=== PATIENT | male | born 2005 | race Hispanic/Latino ===

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

== ENCOUNTER 2024-06-20 15:35 | Emergency (ER) | payer OTHER, SELFPAY ==
[2024-06-20 15:46] VITALS: BP 125/77
[2024-06-20 15:51] VITALS: BP 125/77
--- NOTE | 2024-06-20 16:50 | ED.GENMED ---
History of Present Illness
<Denise Cooley PA-C - Last Filed: 06/20/24 20:26>
General
Chief Complaint: Throat Problem
Source: patient
Exam Limitations: none
Time Seen by Provider: 06/20/24 16:34
History of Present Illness
History of Present Illness:
18yoM with no significant past medical history presenting for evaluation of a sore throat. Patient has been sick for the past few days with a sore throat, body aches, chills, and fever. He initially had a cough but this has since resolved. He
reports a 'pinching pain' in his vocal cords/throat region that is mainly present after belching. He denies any dysphagia or foreign body sensation of his throat. No fevers, ear pain, vomiting.
Past History
<Denise Cooley PA-C - Last Filed: 06/20/24 20:26>
Past History
ED Past Medical History: None
ED Past Surgical History: None
Phy Exam
<Denise Cooley PA-C - Last Filed: 06/20/24 20:26>
General Physical Exam
General Presentation: well appearing and no apparent distress
General age: appears stated age
General Skin: warm and dry
General Habitus: normal
General Mental: alert
ENT Exam
ENT Exam: TM's normal, neck supple, normocephalic and other (Mild erythema to posterior oropharynx. No tonsillar hypertrophy or exudates. Uvula midline. Normal phonation. No trismus. Tolerating oral secretions without difficulty. )
Cardiovascular Exam
Cardiovascular Exam: regular rate/rhythm
Pulmonary Exam
Pulmonary Exam: lungs clear, no respiratory distress, no rales, no crackles and no rhonchi
Neurological Exam
Neurological Exam: alert
Skin Exam
Skin Exam: normal color and warm/dry
Psychiatric Exam
Psychiatric Exam: normal mood/affect
Course
<Denise Cooley PA-C - Last Filed: 06/20/24 20:26>
Orders/Labs/Results
Orders:
Orders
06/20/24 16:44
COVID-19 Antigen Urgent
Source: Nasal Swab
Influenza A+B Rapid Molecular Urgent
LUZ Source: Nasal Swab
Specimen Description:
06/20/24 16:49
CR Soft Tissue Neck Urgent
Comment:
Reason For Exam: pinching pain in throat
06/20/24 16:59
Rapid Strep Group A Urgent
LUZ Source: Throat/Pharynx
Specimen Description:
Date Specimen was Collected: 06/20/24
Time Specimen was Collected: 16:58
Vital Signs
Initial and Last Documented VS:
Initial Vital Signs
Temp Pulse Resp BP Pulse Ox
36.6 C 97 16 125/77 98
06/20/24 15:46 06/20/24 15:46 06/20/24 15:46 06/20/24 15:46 06/20/24 15:46
Last Documented Vital Signs
Temp Pulse Resp BP Pulse Ox
36.6 C 97 18 126/80 88
06/20/24 15:51 06/20/24 18:20 06/20/24 18:20 06/20/24 18:20 06/20/24 18:20
<Evaristo Pollard MD - Last Filed: 06/20/24 23:06>
Orders/Labs/Results
Orders:
Orders
06/20/24 16:44
COVID-19 Antigen Urgent
Source: Nasal Swab
Influenza A+B Rapid Molecular Urgent
LUZ Source: Nasal Swab
Specimen Description:
06/20/24 16:49
CR Soft Tissue Neck Urgent
Comment:
Reason For Exam: pinching pain in throat
06/20/24 16:59
Rapid Strep Group A Urgent
LUZ Source: Throat/Pharynx
Specimen Description:
Date Specimen was Collected: 06/20/24
Time Specimen was Collected: 16:58
Vital Signs
Initial and Last Documented VS:
Initial Vital Signs
Temp Pulse Resp BP Pulse Ox
36.6 C 97 16 125/77 98
06/20/24 15:46 06/20/24 15:46 06/20/24 15:46 06/20/24 15:46 06/20/24 15:46
Last Documented Vital Signs
Temp Pulse Resp BP Pulse Ox
36.6 C 97 18 126/80 88
06/20/24 15:51 06/20/24 18:20 06/20/24 18:20 06/20/24 18:20 06/20/24 18:20
<Denise Cooley PA-C - Last Filed: 06/20/24 20:26>
MDM/Problems Addressed
Differential Diagnosis Includes:
18yoM here with flu-like symptoms x a few days as well as a 'pinching pain' in his vocal cords with belching. VSS. He is well appearing in no distress. Mild erythema in posterior oropharynx. Exam otherwise reassuring. Differential diagnosis includes
but is not limited to: viral illness, strep pharyngitis, GERD
Initial ED plan: Check COVID/flu swabs, strep testing, and soft tissue neck x-rays.
<Denise Cooley PA-C - Last Filed: 06/20/24 20:26>
*Critical Care Note
Total Time (30-74mins, 75-104mins- exclusive of procedures): Not Applicable
<Denise Cooley PA-C - Last Filed: 06/20/24 20:26>
Update Note
Update Note:
Patient is positive for influenza A. COVID and strep testing negative. Neck x-rays appear normal per my interpretation, radiology report pending. Supportive care discussed. Advised f/u with PCP if throat symptoms persist. ED return precautions
discussed. Patient in agreement with plan and was discharged in stable condition.
<Evaristo Pollard MD - Last Filed: 06/20/24 23:06>
Update Note
Update Note:
Patient is positive for influenza A. COVID and strep testing negative. Neck x-rays appear normal per my interpretation, radiology report pending. Supportive care discussed. Advised f/u with PCP if throat symptoms persist. ED return precautions
discussed. Patient in agreement with plan and was discharged in stable condition.
UPDATE
I received a call from radiologist on an over read of the patient's neck x-ray. Concerned that there is retropharyngeal air on the x-ray. I called the patient to review this and advised him to come back to the emergency room immediately for
further assessment. He indicated that he would be returning.
ED Attending Note
<Denise Cooley PA-C - Last Filed: 06/20/24 20:26>
-
Portions of this chart may have been created with voice recognition software.� Occasional wrong word or��sound alike� substitutions may have occurred due to the inherent limitations of voice recognition software.
Discharge Plan
Departure
Patient Disposition: Home (Routine Discharge)
Date of Disposition: 06/20/24
Time of Disposition: 18:07
Patient with high blood pressure during this ER visit?: No
Discharge Problem:
Influenza A
Instructions: Flu in adults - ED discharge instructions
Prescriptions:
No Action
prednisone 20 MG tablet
40 mg PO DAILY Qty: 6 0RF
Referrals:
Laurence Mcclellan MD [Family Provider] -
Activity Restrictions/Additional Instructions:
Drink plenty of fluids and rest. Take Tylenol and ibuprofen as needed for fevers/body aches.
Please follow-up with your family doctor. Return to the ER with any worsening symptoms, trouble breathing, or inability to swallow.
Interventions
Interventions:
*Risk Screen - Suicide Last Done: 06/20/24 15:46
*General Assessment Last Done: 06/20/24 16:40
*Neglect/Abuse Screening Last Done: 06/20/24 15:51
*ED COVID-19 Vaccine History Last Done: 06/20/24 16:40
*Nursing Disposition Last Done: 06/20/24 18:20
ED-EENT Assessment Last Done: 06/20/24 16:40
ED- Pulmonary Assessment Last Done: 06/20/24 16:40
Discharge Date and Time
Discharge Date/Time: 06/20/24 18:21
Print Language: [place]
[2024-06-20 17:22] LABS: COVID-19 Antigen Negative (Negative)
[2024-06-20 18:20] VITALS: BP 126/80
== END 2024-06-20 18:21 | disposition home or self-care (01) ==
LOC: EMR 15:35
PROVIDERS: EMERGENCY PHYSICIAN Emergency Medicine; FAMILY PHYSICIAN Pediatrics
DX: J10.1 Influenza due to other identified influenza virus with other respiratory manifestations (principal); Z11.52 Encounter for screening for COVID-19
CPT/HCPCS: 99283; 70360; 87070; 87502; 87811; 87880

== ENCOUNTER 2024-06-21 14:15 | Emergency (ER) | payer OTHER, SELFPAY ==
[2024-06-21 14:31] VITALS: BP 125/73
[2024-06-21 15:12] LABS: % Basophils 0.5 % (0-2); % Eosinophils 3.2 % (0-6); % Immature Granulocytes 0.4 % (0-0.5); % Lymphocytes 30.9 % (20.5-51.1); % Monocytes 13.7 % (1.7-9.3); % Neutrophils 51.3 % (42.2-75.2); Absolute Eosinophils 0.2 10^3/uL (0-0.7); Absolute Lymphocytes 1.7 10^3/uL (1.2-3.4); Absolute Monocytes 0.8 10^3/uL (0.1-0.6); Absolute Neutrophils 2.9 10^3/uL (1.4-6.5); Hematocrit 48.2 % (39.0-52.0); Hemoglobin 16.2 g/dL (13.0-18.0); Mean Corp Hgb Conc. 33.6 g/dL (33.0-37.0); Mean Corpuscular Hgb 30.2 pg (27.0-31.0); Mean Corpuscular Volume 89.8 fL (80.0-94.0); Mean Platelet Volume 9.3 fL (7.4-10.4); Nucleated Red Blood Cells % 0 % (-); Platelet Count 195 10^3/uL (130-400); Red Blood Cell Count 5.37 10^6/uL (4.70-6.10); White Blood Cell Count 5.6 10^3/uL (4.8-10.8)
[2024-06-21 15:30] LABS: ALT (SGPT) 25 U/L (0-50); AST (SGOT) 36 U/L (17-59); Albumin 4.7 g/dl (3.5-5.0); Alkaline Phosphatase 80 U/L (38-126); Blood Urea Nitrogen 13 mg/dl (9-20); Calcium 9.4 mg/dl (8.4-10.2); Carbon Dioxide 30 mmol/L (22-30); Chloride 100 mmol/L (98-107); Glucose 96 mg/dl (70-99); Potassium 4.1 mmol/L (3.5-5.1); Sodium 139 mmol/L (135-145); Total Bilirubin 0.3 mg/dl (0.2-1.3); Total Protein 7.6 g/dl (6.3-8.2); eGFR > 60.00
--- NOTE | 2024-06-21 16:15 | ED.GENMED ---
History of Present Illness
<Kayla Diaz METAL PATTERNMAKER - Last Filed: 06/23/24 16:29>
General
Chief Complaint: Abnormal Lab Value
Source: patient
Exam Limitations: none
Time Seen by Provider: 06/21/24 15:24
Nursing documentation reviewed up to this point in time: agreed with
History of Present Illness
History of Present Illness:
18-year-old male called back to ED for a CAT scan neck and chest with IV contrast. He was here last night diagnosed with the flu and had a sore throat and described a 'pinching pain' in his vocal cords/throat region mainly present after belching so
soft tissue lateral neck xray done and radiology reported IMPRESSION:
There is air within the retropharyngeal space and subtle air outlining fascial planes in the lower neck. No radiopaque foreign body or soft tissue swelling.
Possible considerations include upper aerodigestive tract perforation, or possibly tracking superiorly from the chest, which may be seen with pneumomediastinum related to asthma or esophageal perforation. Consider further evaluation with CT. He
denies dysphagia or FB sensation. He is speaking and swallowing well.
He state he feels 6-7/10 tightness left mid to upper chest that started after the IV was placed in left AC area in triage.
States he's been lifting heavy weights (45 lb curl) recently and after lifting last week felt a 'pull' RIGHT lower rib area
Past History
<Kayla Diaz, METAL PATTERNMAKER - Last Filed: 06/23/24 16:29>
Past History
ED Past Medical History: None
ED Past Surgical History: Other ([place] teeth extraction)
Social History
Tobacco: Non-smoker
Alcohol: None
Personal: Single
Living: with family
Review of Systems
<Kayla Diaz, METAL PATTERNMAKER - Last Filed: 06/23/24 16:29>
Review of Systems
Allergies reviewed?: Yes
All Other Systems: ROS reviewed and negative except as documented in HPI and ROS
Constitutional: Denies fever or fatigue
EENT: Denies sore throat
Respiratory: Denies cough or trouble breathing
Cardiac: Denies chest pain or diaphoresis
ABD/GI: Denies abdominal pain, nausea or vomiting
Musculoskeletal: Reports no symptoms
Skin: Reports no symptoms
Neurological: Reports no symptoms
Phy Exam
<Kayla Diaz, METAL PATTERNMAKER - Last Filed: 06/23/24 16:29>
Physical Exam
Physical Exam:
GENERAL: No acute distress. A&Ox3.
CONSTITUTIONAL: Afebrile.
EYES: clear, conjunctivae normal
ENMT: moist mucus membranes, Pharynx nl. No crepitus about the neck and chest
RESPIRATORY: Regular respirations, nonlabored, lungs clear.
CARDIOVASCULAR: Regular rate and rhythm, no murmurs, no rubs.
GI: Soft, nontender, normal BS
MUSCULOSKELETAL: Moves with ease. Well perfused.
SKIN: Warm, dry, pink
PSYCH: Normal mood and affect. Well kept, interactive and appropriate
NEUROLOGIC: Awake, alert and oriented. No focal neurological deficits
Course
<Kayla Diaz, METAL PATTERNMAKER - Last Filed: 06/23/24 16:29>
Orders/Labs/Results
Orders:
Orders
06/21/24 14:28
CT Chest With Iv Contrast Urgent
Comment:
Reason For Exam: abnormal neck x-ray
CT Neck With Iv Contrast Urgent
Comment:
Reason For Exam: abnormal neck x-ray
06/21/24 14:45
Complete Blood Count/With Diff Urgent
Comprehensive Metabolic Panel Urgent
Abnormal Lab Results
06/21/24
14:45
Absolute Monos (auto) 0.8 H 10^3/uL
(0.1-0.6)
Monocytes % 13.7 H %
(1.7-9.3)
06/21/24 14:45
06/21/24 14:45
Vital Signs
Initial and Last Documented VS:
Initial Vital Signs
Temp Pulse Resp BP Pulse Ox
98.7 F 78 16 125/73 98
06/21/24 14:31 06/21/24 14:31 06/21/24 14:31 06/21/24 14:31 06/21/24 14:31
Last Documented Vital Signs
Temp Pulse Resp BP Pulse Ox
98.7 F 86 16 129/90 99
06/21/24 14:31 06/21/24 18:57 06/21/24 18:57 06/21/24 18:57 06/21/24 18:57
Electro Plater consulted with Physician
Electro Plater consulted with physician?: Yes
Name of Physician Consulted: Jairo
<Cecelia Gill MD - Last Filed: 06/21/24 18:28>
Orders/Labs/Results
Orders:
Orders
06/21/24 14:28
CT Chest With Iv Contrast Urgent
Comment:
Reason For Exam: abnormal neck x-ray
CT Neck With Iv Contrast Urgent
Comment:
Reason For Exam: abnormal neck x-ray
06/21/24 14:45
Complete Blood Count/With Diff Urgent
Comprehensive Metabolic Panel Urgent
Abnormal Lab Results
06/21/24
14:45
Absolute Monos (auto) 0.8 H 10^3/uL
(0.1-0.6)
Monocytes % 13.7 H %
(1.7-9.3)
06/21/24 14:45
06/21/24 14:45
Vital Signs
Initial and Last Documented VS:
Initial Vital Signs
Temp Pulse Resp BP Pulse Ox
98.7 F 78 16 125/73 98
06/21/24 14:31 06/21/24 14:31 06/21/24 14:31 06/21/24 14:31 06/21/24 14:31
Last Documented Vital Signs
Temp Pulse Resp BP Pulse Ox
98.7 F 86 16 129/90 99
06/21/24 14:31 06/21/24 18:57 06/21/24 18:57 06/21/24 18:57 06/21/24 18:57
<Kayla Diaz METAL PATTERNMAKER - Last Filed: 06/23/24 16:29>
MDM/Problems Addressed
Differential Diagnosis Includes:
Aerodigestive tract perforation, pneumomediastinum
MDM/Problems Addressed:
18-year-old male called back to ED for a CAT scan neck and chest with IV contrast. He was here last night diagnosed with the flu and had a sore throat and described a 'pinching pain' in his vocal cords/throat region mainly present after belching so
soft tissue lateral neck xray done and radiology reported IMPRESSION:
There is air within the retropharyngeal space and subtle air outlining fascial planes in the lower neck. No radiopaque foreign body or soft tissue swelling.
Possible considerations include upper aerodigestive tract perforation, or possibly tracking superiorly from the chest, which may be seen with pneumomediastinum related to asthma or esophageal perforation. Consider further evaluation with CT. He
denies dysphagia or FB sensation. He is speaking and swallowing well.
He state he feels 6-7/10 tightness left mid to upper chest that started after the IV was placed in left AC area in triage.
States he's been lifting heavy weights (45 lb curl) recently and after lifting last week felt a 'pull' RIGHT lower rib area
Afebrile, NAD
4:15 p.m.
Pt denies any left chest pain, 'it went away.'
CBC, CMP normal
5:00 PM: CT neck neck and chest radiology report read: IMPRESSION:
Gas is seen within the fascial planes of the neck and chest, with the largest volume of gas situated within the superior mediastinum at the cervical-thoracic junction. Exact etiology uncertain. No definite CT evidence of tracheal perforation or
esophageal perforation. No pneumothorax. No focal collection/abscess.
Case discussed with Dr. Gill
Consulted ENT Dr. Cruz who states in young people this usually resolves on its own. She agrees he can be discharged since he is asymptomatic
His PCP is Laurence Larsen he states he can see her Monday for follow-up
Strict return instructions discussed.
<Kayla Diaz METAL PATTERNMAKER - Last Filed: 06/23/24 16:29>
*Critical Care Note
Total Time (30-74mins, 75-104mins- exclusive of procedures): Not Applicable
ED Attending Note
<Kayla Diaz METAL PATTERNMAKER - Last Filed: 06/23/24 16:29>
-
Portions of this chart may have been created with voice recognition software.� Occasional wrong word or��sound alike� substitutions may have occurred due to the inherent limitations of voice recognition software.
<Cecelia Gill MD - Last Filed: 06/21/24 18:28>
ED Attending Note
Patient seen and examined by attending physician: Yes
I performed the substantive portion of visit, reviewed & personally made and approve the management plan that is documented in note by myself or ASIF.: Yes
ED Attending Note:
Patient appears extremely well and comfortable. He has no soft tissue neck swelling. He has no hoarseness or stridor. He has no crepitus. Patient has absolutely no complaints of neck pain or chest pain or throat pain at this time.
Discharge Plan
Departure
Patient Disposition: Home (Routine Discharge)
Date of Disposition: 06/21/24
Time of Disposition: 18:45
Patient with high blood pressure during this ER visit?: No
Condition: Good
Discharge Problem:
Pneumomediastinum
Prescriptions:
No Action
prednisone 20 MG tablet
40 mg PO DAILY Qty: 6 0RF
Referrals:
Laurence Mcclellan MD [Family Provider] - Follow up in 2-3 days
Activity Restrictions/Additional Instructions:
As we discussed, you have air in the soft tissues around your upper chest and neck, this is not normal but you have absolutely no symptoms, no trouble breathing no shortness of breath no chest pain no signs of infection so you are stable to go home.
Be sure to follow-up with your family doctor on Monday as you may need a repeat CAT scan to be sure the air is resolving.
Return here immediately for trouble breathing, chest pain, difficulty swallowing, throat pain or feeling worse in any way.
Interventions
Interventions:
*Risk Screen - Suicide Last Done: 06/21/24 14:31
*General Assessment Last Done: 06/21/24 14:31
*Neglect/Abuse Screening Last Done: 06/21/24 14:31
ED- Fall Risk Assessment Last Done: 06/21/24 18:55
*ED COVID-19 Vaccine History Last Done: 06/21/24 15:17
*Nursing Disposition Last Done: 06/21/24 18:55
Discharge Date and Time
Discharge Date/Time: 06/21/24 19:02
Print Language: [email or web address]
[2024-06-21 16:56] VITALS: BP 114/56
[2024-06-21 18:57] VITALS: BP 129/90
== END 2024-06-21 19:02 | disposition home or self-care (01) ==
LOC: EMR 14:15
PROVIDERS: Physician Assistant; EMERGENCY PHYSICIAN Emergency Medicine; FAMILY PHYSICIAN Pediatrics
DX: J98.2 Interstitial emphysema (principal); J11.1 Influenza due to unidentified influenza virus with other respiratory manifestations
CPT/HCPCS: 99284; 70491; 71260; 80053; 85025; Q9967